=== PATIENT | female | born 2000 | race Caucasian/White ===

== ENCOUNTER 2021-04-10 06:24 | Emergency (ER) | payer OTHER ==
[2021-04-10] MEDS ORDERED: MEDROL 4MG DOSEP4 MG PO (09:19)
[2021-04-10] MEDS ORDERED: NORCO 5-325 TA1 EACH PO (09:19)
[2021-04-10] MEDS ORDERED: MOBIC15 MG PO (09:19)
== END 2021-04-10 09:36 | disposition home or self-care (01) ==
LOC: FER 06:24
DX: M43.6 Torticollis (principal)
CPT/HCPCS: 99283